=== PATIENT | male | born 1945 | race Caucasian/White ===

== ENCOUNTER 2016-10-26 10:54 | Outpatient (CLI) | payer MEDICARE ==
--- NOTE | 2016-10-26 17:46 | XRAY Report ---
LUMBAR SPINE, THREE VIEWS: 10/26/2016 HISTORY: Back pain. COMPARISON: None. FINDINGS: The vertebral bodies are normal in height. There is slight retrolisthesis of L3 with resp ect to L4 and L1 with respect to L2. The alignment is otherwise unremarkable. There is moderately a dvanced disk space narrowing at L1-2, L3-4, L4-5 and L5-S1. Degenerative facet joint arthropathy is present, particularly lower lumbar levels. Vascular calcification is noted. IMPRESSION: MULTILEVEL DEGENERATIVE CHANGE LUMBAR SPINE WITHOUT SUPERIMPOSED ACUTE FINDINGS. LUMBAR SPINAL STENOSIS IS LIKELY PRESENT BUT COULD BE BEST ASSESSED BY MRI. INCIDENTAL NOTE MADE OF EXTENS VAN FECAL MATERIAL THROUGHOUT THE COLON. JOB #: [id number] EXT JOB #:[id number]
--- NOTE | 2016-10-26 17:47 | XRAY Report ---
SACRUM AND COCCYX: 10/26/2016 HISTORY: Back pain. Three views of the sacrum and coccyx show no definite fracture, bone destruction, malalignment or oth er abnormality. IMPRESSION: NEGATIVE SACRUM AND COCCYX. JOB #: [id number] EXT JOB #:[id number]
== END 2016-10-26 10:55 | disposition home or self-care (01) ==
LOC: DI.S 10:54
PROVIDERS: ATTEND Nurse Practitioner Family
DX: G58.8 Other specified mononeuropathies (principal); M54.5 Low back pain; M53.3 Sacrococcygeal disorders, not elsewhere classified
CPT/HCPCS: 72100; 72220

== ENCOUNTER 2018-11-29 13:29 | Outpatient (CLI) | payer MEDICARE ==
--- NOTE | 2018-11-30 14:16 | XRAY Report ---
Reason: PAIN IN LEFT WRIST Procedure Date: 11/29/2018 Accession Number: [id number] / [id number] Procedure: XRS - Wrist 3 View LT CPT Code: FULL RESULT: EXAM: LEFT WRIST RADIOGRAPHY EXAM DATE: 11/29/2018 01:45 PM. CLINICAL HISTORY: Pain in left wrist. COMPARISON: None. TECHNIQUE: 3 views. FINDINGS: Bones: On the lateral view, there are at least two linear 1 to 2 mm flake-like calcific densities, compatible with minimally avulsed fractures. They may be obscured on the other two views by overlying bone. This may be related to a fracture of the triquetrum. Joints: Normal. No subluxations. Soft Tissues: Soft tissue prominence at the dorsal wrist. IMPRESSION: Suspected fractures of the triquetrum. RADIA
== END 2018-11-29 13:30 | disposition home or self-care (01) ==
LOC: DI.S 13:29
PROVIDERS: ATTEND Internal Medicine
DX: M25.532 Pain in left wrist (principal)

== ENCOUNTER 2019-11-24 15:03 | Outpatient (CLI) | payer MEDICARE | END 2019-11-24 15:04 | disposition EMS.NT | LOC: EMS 15:03 | PROVIDERS: ATTEND Surgery | DX: R44.8 Other symptoms and signs involving general sensations and perceptions (principal); R11.2 Nausea with vomiting, unspecified; R61 Generalized hyperhidrosis ==

== ENCOUNTER 2021-06-16 14:51 | Outpatient (CLI) | payer MEDICARE ==
--- NOTE | 2021-06-16 16:24 | XRAY Report ---
PROCEDURE: Shoulder 3 View RT INDICATIONS: PAIN OF RIGHT SHOULDER JOINT TECHNIQUE: 3 views of the shoulder were acquired. COMPARISON: None. FINDINGS: Bones: No fractures or dislocations. No suspicious bony lesions. Visualized ribs appear intact. P eriareolar osteophyte formation at the acromioclavicular and glenohumeral joints. Soft tissues: No suspicious soft tissue calcifications. IMPRESSION: Osteoarthritis. No acute fracture. No osseous lesion. If symptoms and/or clinical suspic ion for pathology continue, further assessment with repeat plain films, or advanced imaging (e.g., CT , MRI, or bone scan) is recommended for further assessment. Reviewed by: Hanna Austin MD on 06/16/2021 4:22 PM PDT Approved by: Hanna Austin MD on 06/16/2021 4:22 PM PDT Station ID: [id number]
== END 2021-06-16 14:52 | disposition home or self-care (01) ==
LOC: DI.S 14:51
PROVIDERS: ATTEND Nurse Practitioner Family
DX: M19.011 Primary osteoarthritis, right shoulder (principal)

== ENCOUNTER 2021-07-08 07:20 | Day surgery (SDC) | payer MEDICARE ==
[2021-07-08] MEDS ORDERED: LACTATED RINGERS 1,000 ML IV ONE ×2 (07:39→09:13)
--- NOTE | 2021-07-08 08:07 | ANESTHESIA ---
Pre-Anesthesia VS, & Labs - Diagnosis pos cologuard - Procedure colonoscopy Vital Signs: Temp Pulse Resp BP Pulse Ox 37.0 C 67 16 142/64 H 100 07/08/21 07:39 07/08/21 07:39 07/08/21 07:39 07/08/21 07:39 07/08/21 07:39 Height: 5 ft 4 in Weight (kg): 71.6 kg Body Mass Index: 27.1 BMI Classification: Overweight - NPO >8 hours - Lab Results Current Lab Results: Laboratory Tests 07/08/21 07:48: POC Whole Bld Glucose 135 H Home Medications and Allergies Allergies/Adverse Reactions: Allergies Allergy/AdvReac Type Severity Reaction Status Date / Time No Known Drug Allergies Allergy Verified 07/07/21 13:18 Anes History & Medical History - Anesthetic History Anesthesia Complications: reports: No previous complications Family history of Anesthesia Complications: Denies Family history of Malignant Hyperthermia: Denies - Medical History Cardiovascular: reports: Hypertension, High cholesterol Pulmonary: reports: Asthma, Sleep apnea, CPAP use Gastrointestinal: reports: GERD Urinary: reports: None Musculoskeletal: reports: Osteoarthritis Endocrine/Autoimmune: reports: Type 2 diabetes Skin: reports: None - Surgical History Eyes Ears Nose Throat (EENT): reports: Tonsil/Adenoidectomy Orthopedic: reports: Spine surgery Exam General: Alert, Oriented x3, Cooperative Dental: WNL Mouth Openin Fingerbreadth Neck Mobility: Normal Mallampati classification: II Thyromental Distance: 4-6 cm Respiratory: Lungs clear Cardiovascular: Regular rate Plan Anesthesia Type: Total IV Consent for Procedure(s) Verified and Reviewed: Yes Code Status: Attempt Resuscitation ASA classification: 3-Severe systemic disease Is this case an emergency?: No
[2021-07-08] MEDS ORDERED: PROPOFOL 200 MG/20 ML VIAL IVP ONE (08:57)
--- NOTE | 2021-07-08 09:23 | ANESTHESIA POST OP EVALUATION ---
Anesthesia Post Eval - Post Anesthesia Eval Vitals: Last Vital Signs Temp 36.7 C 07/08/21 09:13 Pulse 81 07/08/21 09:13 Resp 14 07/08/21 09:13 BP 87/58 L 07/08/21 09:13 Pulse Ox 98 07/08/21 09:13 CV Function Including HR & BP: Stable Pain Control: Satisfactory Nausea & Vomiting: Negative Mental Status: Baseline Respiratory Status: Airway Patent Hydration Status: Satisfactory Anesthesia Complications: None
[2021-07-08 09:57] VITALS: BP 130/53
== END 2021-07-08 07:21 | disposition home or self-care (01) ==
LOC: SDS 07:20
PROVIDERS: ATTEND Surgery
DX: R19.5 Other fecal abnormalities (principal); K57.30 Diverticulosis of large intestine without perforation or abscess without bleeding; K64.8 Other hemorrhoids; G47.33 Obstructive sleep apnea (adult) (pediatric); E11.22 Type 2 diabetes mellitus with diabetic chronic kidney disease; I12.9 Hypertensive chronic kidney disease with stage 1 through stage 4 chronic kidney disease, or unspecified chronic kidney disease; N18.30 Chronic kidney disease, stage 3 unspecified; Z79.84 Long term (current) use of oral hypoglycemic drugs
CPT/HCPCS: 45378; J7120